=== PATIENT | male | born 1945 | race Native Hawaiian/Other Pacific Islander ===

== ENCOUNTER 2017-08-11 08:54 | Outpatient (CLI) | payer OTHER ==
[~2017-08-11 08:54] MED LIST: ACTOS45 MG OR; CLARITHROMYC500 M1 OR; ETHA400T PO; FLUT0.05 NAS; FLUTMIS6 INH; FURO20TA67 PO; LEVO0.117 PO; LISI20TA11 PO; LOPRESSOR100 MG PO; LOVA20TA PO; NIASPAN1000 ER PO; PAXIL20 MG PO; RIFA300C2 PO; TEMA30CA18 PO; TIOTCAP2 INH; TRAM50TA PO
[2017-08-11 09:27] LABS: PLATELET COUNT 183 K/uL (142-355)
[2017-08-11 10:03] LABS: POTASSIUM 3.7 mmol/L (3.6-5.2)
== END 2017-08-11 19:22 | disposition home or self-care (01) ==
LOC: LABW 08:54
PROVIDERS: Physician Assistant
DX: E03.8 Other specified hypothyroidism (principal); E11.9 Type 2 diabetes mellitus without complications; E78.4 Other hyperlipidemia; R35.1 Nocturia
CPT/HCPCS: 36415; 80053; 80061; 83036; 84153; 84439; 84443; 85027